=== PATIENT | female | born 1950 | race Caucasian/White ===

== ENCOUNTER 2024-09-28 08:17 | Emergency (ER) | payer OTHER, SELFPAY ==
[2024-09-28 08:29] VITALS: BP 158/82; PULSE 99; RESP 18; TEMP 36.4; O2SAT 94; BMI 31.2
[2024-09-28 08:46] LABS: Appearance Urine Clear (Clear); Bilirubin Urine Negative (Negative); Blood Urine 1+ (Negative); Color Urine Yellow (Yellow); Glucose Urine Negative (Negative); Ketones Urine Negative (Negative); Leukocyte Esterase Urine Negative (Negative); Nitrite Urine Negative (Negative); Protein Urine Negative (Negative); Urobilinogen Urine 0.2 (0.2-1.0)
--- NOTE | 2024-09-28 08:56 | ED_ITS ---
HPI - General Adult General Date Seen: 09/28/24 Chief complaint: Flank Pain Stated complaint: R side pain Time Seen by Provider: 09/28/24 08:24 Source: patient, family and RN notes reviewed Mode of arrival: ambulatory Limitations: language barrier History of Present Illness HPI narrative: Is a 73-year-old woman here with her daughter, who is helping to interpret, for evaluation of left-sided flank and abdominal pain which started earlier today. She says it was terrible earlier although it is feeling a bit better. When it was at its worst she had associated nausea and vomiting. She is no longer feeling nauseated now. She denies any urinary symptoms aside from having to get up multiple times at night to pee over the past few months. She does take hydrochlorothiazide but says she takes that morning. She does not have any dysuria or hematuria. She has not had any diarrhea, black or bloody stools, constipation. No history of kidney stones or diverticulitis. Medical history and medications reviewed. She does not smoke. Related Data Home Medications ?Medication ?Instructions ?Recorded ?Confirmed acetaminophen 500 mg tablet 1,000 mg PO 3XD PRN pain 09/28/24 09/28/24 famotidine 20 mg tablet 20 mg PO DAILY 09/28/24 09/28/24 hydrochlorothiazide 25 mg tablet 25 mg PO QAM 09/28/24 09/28/24 losartan 100 mg tablet 100 mg PO DAILY 09/28/24 09/28/24 Allergies Allergy/AdvReac Type Severity Reaction Status Date / Time No Known Drug Allergies Allergy Verified 09/28/24 08:27 Review of Systems Status of ROS: Reports: 10 or more systems reviewed and unremarkable except as noted in History and below Exam Narrative: Exam Narrative: Vital signs as noted above. In general, an alert, well-appearing patient. Head: Normocephalic, atraumatic. Eyes: Pupils are equal reactive. Extraocular movements are full. Conjunctivae are normal. ENT: Mucous membranes are moist. Neck: Supple without lymphadenopathy. Heart: Regular rate and rhythm. No murmur or rub. Lungs: Clear bilaterally. No increased work of breathing, crackles or wheezes. Abdomen: Soft and nontender. No organomegaly. Extremities: Well perfused. No edema. No calf tenderness. Pulses intact. Neurologic: Patient is alert and oriented to person and place. Speech is fluent. Face is symmetric. Moves all extremities equally. Affect: Normal. Skin: Warm and dry. Well perfused. Const: Vital Signs, click to edit/add: Vital Signs - 24 hr 09/28/24 08:29 Temperature 97.6 F Pulse Rate [Pulse Oximeter] 99 Respiratory Rate 18 Blood Pressure [Ri ght Upper Arm] 158/82 H Pulse Oximetry 94 Oxygen Delivery Me thod Room Air Documenting provider has reviewed patient's vital signs: yes Course Course ED Course: Urinalysis obtained. Right now she declines need for anything for pain or nausea. CT scan of the abdomen ordered to evaluate for kidney stone. Other diagnostic considerations would include small-bowel obstruction, diverticulitis, colitis, less likely pancreatitis, cholecystitis, appendicitis given the location of her pain, rule out urinary tract infection or pyelonephritis. Urinalysis does show 1+ blood, micro is pending at this time. CBC shows a normal white blood cell count of 7, minimal left shift with 78% neutrophils. Metabolic panel is notable for sodium of 129 and a potassium of 3.3, I do not have previous numbers to compare this to but she is on hydrochlorothiazide which may be contributing. I do not think this directly relates to her abdominal sy mptoms. BUN creatinine are normal, blood sugar 175. CRP is less than 0.5. Urine micro shows 2-5 red cells, 0-[address] scan by my review did not show evidence of kidney stones or hydronephrosis, pyelonephritis, diverticulitis or other inflammatory changes. Final radiology read was reviewed, no findings to explain her left-sided abdominal pain but she was noted to have a lesion on the right ovary difficult to characterize and a follow-up ultrasound was recommended. I have discussed all this with the patient and her daughter. No clear explanation for her back and abdominal pain at this time, would recommend treating with ibuprofen and/or Tylenol if needed. Discussed that the ovarian cyst needs to be followed up with an ultrasound, her daughter says that they can do that through [facility]. Provided a copy of the CT report. Return at any time for severe uncontrolled pain, new symptoms such as vomiting, fever, bloody stools etcetera. Vital Signs Vital signs: Initial Vital Signs Temperature 97.6 F 09/28/24 08:29 Temperature Source Temporal Artery Scan 09/28/24 08:29 Pulse Rate 99 09/28/24 08:29 Pulse Rhythm Regular 09/28/24 08:29 Respiratory Rate 18 09/28/24 08:29 Blood Pressure 158/82 H 09/28/24 08:29 Blood Pressure Mean 107 H 09/28/24 08:29 Blood Pressure Position Sitting 09/28/24 08:29 Pulse Oximetry 94 09/28/24 08:29 Oxygen Delivery Method Room Air 09/28/24 08:29 Vital Signs Temperature 97.6 F 09/28/24 08:29 Pulse Rate 99 09/28/24 08:29 Respiratory Rate 18 09/28/24 08:29 Blood Pressure 158/82 H 09/28/24 08:29 Pulse Oximetry 94 09/28/24 08:29 Oxygen Delivery Method Room Air 09/28/24 08:29 Temperature 97.6 F 09/28/24 08:29 Pulse Rate 99 09/28/24 08:29 Respiratory Rate 18 09/28/24 08:29 Blood Pressure 158/82 H 09/28/24 08:29 Pulse Oximetry 94 09/28/24 08:29 Oxygen Delivery Method Room Air 09/28/24 08:29 Medical Decision Making Lab Data Labs: Lab Results 09/28/24 09/28/24 Range/Units 08:30 09:12 WBC 6.93 (4.50-11.00) K/uL RBC 3.92 L (4.00-5.20) m/uL Hgb 12.3 (12.0-16.0) gm/dL Hct 35.6 (33.0-51.0) % MCV 91 (80-100) fL MCH 31 (26-34) pg MCHC 35 (32-36) gm/dL RDW Coeff of Armando 11.7 (11.5-15.5) % Plt Count 283 (140-440) K/uL Neut % (Auto) 77.6 H (42.0-72.0) % Lymph % (Auto) 13.9 L (20-44) % [place] % (Auto) 6.2 (0.0-11.0) % Eos % (Auto) 1.2 (0.0-7.0) % Baso % (Auto) 0.4 (0.0-3.0) % Neut # (Auto) 5.40 (1.7-7.0) K/uL Lymph # (Auto) 1.00 (0.90-2.90) K/uL [place] # (Auto) 0.40 (0.00-0.90) K/UL Eos # (Auto) 0.08 (0.00-0.50) K/uL Baso # (Auto) 0.03 (0.00-0.30) K/uL Abs Immat Gran (auto) 0.05 (0.00-0.30) K/uL Imm/Tot Granulo (auto) 0.7 % Sodium 129 L (135-149) mmol/L Potassium 3.3 L (3.6-5.1) mmol/L Chloride 96 (96-114) mmol/L Carbon Dioxide 24 (20-32) mmol/L Anion Gap 9 (7-15) mEq/L BUN 19 (7-30) mg/dL Creatinine 0.6 (0.5-1.5) mg/dL Estimated Creat Clear 37.06 Estimated GFR 96 ml/min Glucose 175 H (60-115) mg/dL Calcium 8.8 (8.4-10.6) mg/dL C-Reactive Protein < 0.5 L (0.5-1.0) mg/dL Urine Color Yellow (Yellow) Urine Appearance Clear (Clear) Urine pH 7.0 (5.0-8.5) Ur Specific [place] 1.020 (1.000-1.030) Urine Protein Negative (Negative) Urine Glucose (UA) Negative (Negative) Urine Ketones Negative (Negative) Urine Blood 1+ A (Negative) Urine Nitrite Negative (Negative) Urine Bilirubin Negative (Negative) Urine Urobilinogen 0.2 (0.2-1.0) Ur Leukocyte Esterase Negative (Negative) Urine RBC 2-5 A (0-2) Urine WBC 0-2 (0-5) Ur Squamous Epith Cells Few (None-Few) Urine Bacteria None (None) Imaging Data CT scan - abdomen: Attestation: I have reviewed the pertinent imaging results. Radiologist's impression: Patient: AZIZA VERGARA Facility: [facility] Site . Site : 1950 Study: CT-Abdomen/Pelvis w/o-09/28/2024 9:15:07 AM Ordering Physician: Marlo Ramirez Final Report: INDICATION: Left flank pain COMPARISON: None TECHNIQUE: CT examination of the abdomen and pelvis was performed without intravenous contrast. Thin section axial images were obtained from the lung bases through the pubic symphysis. Oral contrast was not administered. Please note that all CT scans at this facility use dose modulation, iterative re construction, and/or weight-based dosing when appropriate to reduce radiation dose to as low as reasonably achievable. FINDINGS: LUNG BASES: Minimal atelectasis at the lung bases.The heart size is normal at the lung bases. LIVER/BILIARY SYSTEM:Normal-sized liver. Low-density lesions likely cysts. No intrahepatic biliary ductal dilation. The gallbladder appears normal. ADRENALS: Normal non-contrast appearance KIDNEYS, URETERS and BLADDER:The kidneys appear normal given lack of intravenous contrast. No visible mass, calculus or hydronephrosis. The ureters and bladder as visualized appear normal. SPLEEN:Normal non-contrast appearance. PANCREAS: Normal non-contrast appearance. RETROPERITONEUM and MESENTERY: There is no mass, adenopathy or aortic aneurysm. Atherosclerotic vascular calcifications GASTROINTESTINAL SYSTEM: There is no evidence of diverticulitis, colitis, mechanical obstruction, or appendicitis. The small bowel as visualized appears normal.Diverticulosis. PELVIS: Right ovarian lesion measuring 2.4 centimeters. This appears low-density but can not be fully characterized on this study. Follow-up ultrasound for further characterization is recommended at a clinically appropriate time.. OSSEOUS STRUCTURES and ABDOMINAL WALL: There is an age-appropriate appearance of the osseous structures.Degenerative changes and scoliosis. No significant abdominal wall abnormality. OTHER: No free fluid or free air. IMPRESSION: 1. No calcified calculus. No obstructive uropathy. 2. Diverticulosis but no evidence of diverticulitis, colitis or obstruction. No visible GI cause for left flank pain. 3. Right ovarian lesion measuring 2.4 centimeters. This appears low-density but can not be fully characterized on this study. Follow-up ultrasound for further characterization is recommended at a clinically appropriate time. 4. Other nonacute appearing findings as above Please note that all CT scans at this facility use dose modulation, iterative reconstruction, and/or weight-based dosing when appropriate to reduce radiation dose to as low as reasonably achievable. Dictated by Jameson Radford MD @ 09/28/2024 9:21:33 AM Discharge Plan Discharge Clinical Impression: Left lateral abdominal pain, Ovarian cyst, right Instructions: Abdominal Pain (ED) Additional Instructions: Your test today are largely normal, there is no clear explanation for your pain on your CT scan, such as a kidney stone. There is no evidence of urinary tract infection. Your sodium and potassium are slightly low today, which may be related to the hydrochlorothiazide you take. On your CT scan, you do have a probable cyst on your right ovary, but this needs to be evaluated further with an ultrasound. Please follow this up with your primary care doctor or with Gynecology, if you would like to see 1 of our gynecologists. For severe uncontrolled pain, new symptoms such as fever, vomiting, bloody stools, or other worsening, return to the ER at any time. Prescriptions: No Action acetaminophen 500 mg tablet 1,000 mg PO 3XD PRN (Reason: pain) famotidine 20 mg tablet 20 mg PO DAILY hydrochlorothiazide 25 mg tablet 25 mg PO QAM losartan 100 mg tablet 100 mg PO DAILY Follow Up/Referrals: Provider,Not a Local [Primary Care Provider] - Stand Alone Forms: [employer] Info Instructions
--- OUTSIDE RECORDS SUMMARY | 2024-09-28 09:13 | XMS_ITS | Clinical Summary ---
Author Organization [facility] Address [place], [place] [address] Care Team Providers Care Travel Freight And Passenger Agent Name Role Phone Melva Armendariz RN, BACTERIOLOGIST FISHERY Primary Care Provide r Allergies No known active allergies Medications Medication Sig Dispensed Refills Start Date End Date Status atorvastatin (LIPITOR) 20 mg tabletIndications:Hyper lipidemia, unspecified hyperlipidemia type Take 1 tablet by mouth at bedtime. 90 tablet 3 02/26/2018 Active hydroCHLOROthiazide (HCTZ) 25 mg tabletIndications:HTN (hypertension) TAKE ONE TABLET BY MOUTH EVERY DAY 30 tablet 03/08/2019 Active Active Problems Problem Noted Date Diagnosed Date GERD (gastroesophageal reflux disease) 5 HTN (hypertension) 03/18/2015 Encounters Date Type Department Care Team Description 08/25/2024 Lab Requisition [facility] [address] [facility] [place] [address] Stacia Mock MD 08/14/2024 Lab Requisition [facility] [phone] Stacia Mock MD from Last 3 Months Immunizations Name Administration Dates Next Due COVID-19 vaccine (CASTT 30mcg/0.3mL) GUALBERTO Cruz 02/20/2021,01/30/2021 Influenza A (H1N1), Inactivated 11/11/2009 Influenza, IIV3 (Age 6-35 mos) 12/10/2012 Influenza, IIV3 (Age >=3 years) 11/30/2010 Influenza, IIV4 08/05/2015,09/15/2014 Pneumococcal conj 13-Valent (Prevnar 13) 018 Td (Age >=7 Years) 12/13/2005 Tdap 12/31/2015 Family History Medical History Relation Name Comments Diabetes Mother secondary to complications, age 58 Diabetes Sister two, s econdary to diabetes Relation Name Status Comments Father Mother Sister Social History Tobacco Use Types Packs/Day Years Used Date Smoking Tobacco: Never Smokeless Tobacco: Never Tobacco Cessation:Counseling Given: Yes Alcohol Use Standard Drinks/Week Comments Yes 0 (1 standard drink = 0.6 oz pur e alcohol) 1-2 beers/week PHQ-2 Answer Date Recorded PHQ-2 Score 0 01/26/2019 Sex and Gender Information Value Date Recorded Sex Assigned at Not on file Gender Identity Not on file Sexual Orientation Not on file Obstetrics History Para Term AB IAB SAB Ectopic Multiple Livin g Live Births 6 6 6 Date Outcome GA Total Labor Labor/2nd/3rd Weight Sex Type Anes PTL Dina A1 A5 Name Clin Para Para Para Para Para Para Last Filed Vital Signs Vital Sign Reading Time Taken Comments Blood Pressure 133/60 01/09/2024 4:29 AM DANCE HISTORIAN Pulse 69 01/09/2024 4:29 AM DANCE HISTORIAN Temperature 36.7 ??C (98 ??F) 01/09/2024 3:11 AM DANCE HISTORIAN Respiratory Rate 16 01/09/2024 4:29 AM DANCE HISTORIAN Oxygen Saturation 94% 01/09/2024 4:29 AM DANCE HISTORIAN Inhaled Oxygen Concentration - - Weight 80.3 kg (177 lb) 01/09/2024 3:11 AM DANCE HISTORIAN Height 147.3 cm (4' 10) 01/09/2024 3:11 AM DANCE HISTORIAN Body Mass Index 36.99 01/09/2024 3:11 AM DANCE HISTORIAN Plan of Treatment Health Maintenance Due Date Last Done Comments Hepatitis C screening for ag e 18-79 1970 Zoster (shingles) series for age 50+ (1 of 2) 2002 DEXA/DXA scan for age 65+ 2017 01/11/2016 BMI (ht and wt on same day) for age 18+ 02/22/2019 02/22/2018, 12/25/2017, 03/01/2017, Additional history exists Depression screening for age 12+ 02/22/2019 02/22/2018, 01/31/2017, 12/31/2015, Additional history exists Mammogram for age 45-75 02/22/2019 02/23/20 18, 12/31/2015, 09/15/2014, Additional history exists Pneumococcal series for age 65+ (2 of 2 - PPSV23 or PCV20) 02/22/2019 02/22/2018 COVID-19 vaccine series ( season) 2024 11/02/2021, 11/02/2021, 02/20/2021, Additional history exists Influenza for age 65+ 07/27/2024 08/05/2015 , 09/15/2014, 11/30/2010, Additional history exists Fecal testing non-DNA (FIT,FOBT,iFOBT) for age 45-75 08/22/2025 08/22/2024, 09/27/2022, 02/11/2016 Tetanus booster 12/31/2025 12/31/2015, 12/13/2005 Lipids for age 45-75 08/13/2029 08/13/2024, 09/26/2023, 05/24/2023, Additional history exists Tdap Completed 12/31/2015 Procedures Procedure Name Priority Date/Time Associated Diagnosis Comments OCCULT BLOOD IFOBT STOOL Routine 08/22/2024 6:30 AM CDT Encounter for screening for malignant neoplasm of colon EXTRA TUBE LAVENDER Routine 08/13/2024 2 :45 PM CDT CBC WITH AUTO DIFFERENTIAL Routine 08/13/2024 2:45 PM CDT LIPID PANEL Routine 08/13/2024 2:45 PM CDT HEMOGLOBIN A1C Routine 08/13/2024 2:45 PM CDT COMP METABOLIC PANEL Routine 08/13/2024 2:45 PM CDT CBC WITH AUTO DIFFERENTIAL Routine 08/13/2024 2:45 PM CDT XR MAMMO BILAT SCREENING Routine 02/22/2018 4:32 PM CDT Visit for screening mammogram XR DXA BONE DENSITY SITES AXIAL Routine 01/11/2016 4:26 PM DANCE HISTORIAN Screening for osteoporosis from Last 3 Months or Most Recently Relevant to Health Maintenance Results * OCCULT BLOOD IFOBT STOOL (08/22/2024 6:30 AM CDT) Pathologist [facility] STOOL BLOOD ,IFOBT Negative Negative 08/25/2024 5:18 PM CDT [facility] Stool STOOL SPECIMEN / Unknown Client Collect / Unknown 08/22/2024 6:30 AM CDT 08/25/2024 5:08 PM CDT Stacia Mock MD LABORATORY [facility] [address] [place] [address] * (ABNORMAL) CBC WITH AUTO DIFFERENTIAL (08/13/2024 2:45 PM CDT) [facility] WHITE BLOOD COUNT 7.2 4.5 - 11.0 thou/cu mm 08/14/2024 1:25 PM CDT [facility] RED BLOOD COUNT 3.57(L) 4.00 - 5.20 mil/cu mm 08/14/2024 1:25 PM CDT [facility] HEMOGLOBIN 11.5(L) 12.0 - 16.0 g/dL 08/14/2024 1:25 PM CDT [facility] HEMATOCRIT 32.9(L) 33.0 - 51.0 % 08/14/2024 1:25 PM CDT [facility] MCV 92 80 - 100 fL 08/14/2024 1:25 PM CDT [facility] MCH 32.2 26.0 - 34.0 pg 08/14/2024 1:25 PM CDT [facility] MCHC 35.0 32.0 - 36.0 g/dL 08/14/2024 1:25 PM CDT [facility] RDW 12.4 11.5 - 15.5 % 08/14/2024 1:25 PM CDT [facility] PLATELET COUNT 274 140 - 440 thou/cu mm 08/14/2024 1:25 PM CDT [facility] MPV 10.0 6.5 - 11.0 fL 08/14/2024 1:25 PM CDT [facility] NRBC 0.0 % 08/14/2024 1:25 PM CDT [facility] ABS NRBC 0.0 thou /cu mm 08/14/2024 1:25 PM CDT [facility] % NEUT 48.6 % 08/14/2024 1:25 PM CDT [facility] % LYMPH 29.3 % 08/14/2024 1:25 PM CDT [facility] % MONO 16.8 % 08/14/2024 1:25 PM CDT [facility] % EOS 3.5 % 08/14/2024 1:25 PM CDT [facility] % BASO 0.7 % 08/14/2024 1:25 PM CDT [facility] % IMMATURE GRAN (METAS,MYELOS,TN OS) 1.1 % 08/14/2024 1:25 PM CDT [facility] ABSOLUTE NEUTROPHILS 3.5 1.7 - 7.0 thou/cu mm 08/14/2024 1:25 PM CDT [facility] ABSOLUTE LYMPHOCYTES 2.1 0.9 - 2.9 thou/cu mm 08/14/2024 1:25 PM CDT [facility] ABSOLUTE MONOCYTES 1.2(H) <0.9 thou/cu mm 08/14/2024 1:25 PM CDT [facility] ABSOLUTE EOSINOPHILS 0.3 <0.5 thou/cu mm 08/14/2024 1:25 PM CDT [facility] ABSOLUTE BASOPHILS 0.1 <0.3 thou/cu mm 08/14/2024 1:25 PM CDT [facility] ABSOLUTE IMMATURE GRANULOCYTES(MET ,MYELOS,PROS) 0.1 <0.3 thou/cu mm 08/14/2024 1:25 PM CDT [facility] Blood BLOOD SPECIMEN / Unknown Client Collect / Unknown 08/13/2024 2:45 PM CDT 08/14/2024 12:52 PM CDT Stacia Mock MD HEMATOLOGY Performing Organization Address City/[facility]/ZIP Co de Phone Number [facility] [address] [place] [address], * HEMOGLOBIN A1C SCREENING (08/13/2024 2:45 PM CDT) HEMOGLOBIN A1C SCREENING 6.0 <=6.4 % 08/14/2024 3:11 PM CDT [facility] Blood BLOOD SPECIMEN / Unknown Client Collect / Unknown 08/13/2024 2:45 PM CDT 08/14/2024 12:52 PM CDT Narrative [facility] - 08/14/2024 3:11 PM CDT ? (<5.7%) ?Normal ? (5.7% to 6.4%) ? Indicates prediabetes ? (>=6.5%) ? Confirms diabetes Falsely low levels may be seen with: Recent Transfusion, Recent Significant Blood Loss, Hemolytic Diseases, or Falsely elevated levels may be seen with: Untreated Anemias, Splenectomy Stacia Mock MD CHEMISTRY Performing Organization Address City/[facility] Co de Phone Number [facility] [address] [place] [address], * EXTRA TUBE LAVENDER (08/13/2024 2:45 PM CDT) Blood BLOOD SPECIMEN / Unknown Client Collect / Unknown 08/13/2024 2:45 PM CDT 08/14/2024 12:52 PM CDT Stacia Mock MD LABORATORY [facility] [address] [address], [place] * (ABNORMAL) LIPID PANEL (08/13/2024 2:45 PM CDT) CHOLESTEROL,TOTAL 194 100 - 199 mg/dL 08/14/2024 1:24 PM CDT [facility] Comment: Cholesterol, Total Reference Ranges Desirable <200 mg/dL Borderline 200-239 mg/dL High >=240 mg/dL TRIGLYCERIDES 184(H) <150 mg/dL 08/14/2024 1:24 PM CDT [facility] HDL CHOLESTEROL 60 >40 mg/dL 1:24 PM CDT [facility] NON-HDL CHOLESTEROL 134 <145 mg/dl 08/14/2024 1:24 PM CDT [facility] CHOL/HDL RATIO 3.23 <4.50 08/14/2024 1:24 PM CDT [facility] LDL CHOLESTEROL 97 <=130 mg/dL 08/14/2024 1:24 PM CDT [facility] VLDL CHOLESTEROL 37(H) <=30 mg/dL 08/14/2024 1:24 PM CDT [facility] Blood BLOOD SPECIMEN / Unknown Client Collect / Unknown 08/13/2024 2:45 PM CDT 08/14/2024 12:52 PM CDT Stacia Mock MD CHEMISTRY [facility] [address] [place] [address], [place] * (ABNORMAL) COMP METABOLIC PANEL (08/13/2024 2:45 PM CDT) SODIUM 131(L) 136 - 145 mmol/L 08/14/2024 1:24 PM CDT [facility] POTASSIUM 4.0 3.5 - 5.1 mmol/L 08/14/2024 1:24 PM CDT [facility] CHLORIDE 96(L) 98 - 107 mmol/L 08/14/2024 1:24 PM [facility] CO2,TOTAL 24 22 - 29 mmol/L 08/14/2024 1:24 PM [facility] ANION GAP 11 5 - 18 08/14/2024 1:24 PM T [facility] GLUCOSE 97 70 - 99 mg/dL 08/14/2024 1:24 PM [facility] CALCIUM 8.7(L) 8.8 - 10.2 mg/dL 08/14/2024 1:24 PM [facility] BUN 19 8 - 23 mg/dL 08/14/2024 1:24 PM [facility] CREATININE 0.84 0.50 - 0.90 mg/dL 08/14/2024 1:24 PM [facility] BUN/CREAT RATIO 23(H) 10 - 20 1:24 PM [facility] eGFR 74(L) >90 mL/min/1.7 3m2 08/14/2024 1:24 PM [facility] Comment:As of 2022, eG FR is calculated by the CKD-EPI creatinine equation without race adjustment. ??eGFR can be influenced by muscle mass, exercise, and diet. ??The reported eGFR is an estimation only and is only applicable if the renal function is stable. ALBUMIN 3.8(L) 4.0 - 4.9 g/dL 08/14/2024 1:24 PM T [facility] PROTEIN,TOTAL 6.4 6.0 - 8.0 g/dL 08/14/2024 1:24 PM [facility] BILIRUBIN,TOTAL 0.2 0.0 - 1.2 mg/dL 08/14/2024 1:24 PM [facility] ALK PHOSPHATASE 64 35 - 104 IU/L 08/14/2024 1:24 PM [facility] ALT (SGPT) 42(H) 10 - 35 IU/L 08/14/2024 1:24 PM CDT [facility] AST (SGOT) 32 10 - 35 IU/L 08/14/2024 1:24 PM CDT [facility] Blood BLOOD SPECIMEN / Unknown Client Collect / Unknown 08/13/2024 2:45 PM CDT 08/14/2024 12:52 PM CDT Stacia Mock MD CHEMISTRY [facility] [address] [place] [address], * XR MAMMO BILAT SCREENING (02/22/2018 4:32 PM CDT) Anatomical Region Laterality Modality BREASTS, Breast Left, Breast Right Bilateral Mammography Impressions 02/25/2018 12:32 PM CDT ??There is no radiographic evidence for malignancy. ??Recommend annual mammograms. A lay language report of this examination will be provided to the patient. MAMMOGRAM ASSESSMENT: ??ACR 1 Negative Narrative 02/25/2018 12:32 PM CDT XR MAMMO BILAT SCREENING [[id number]] CLINICAL HISTORY: ??This is an asymptomatic 67 y.o. patient. INDICATION FOR EXAM: Mammogram Screening. TECHNIQUE: CC & MLO views were obtained. ??This digital study was evaluated with the assistance of Computer-Aided Detection. COMPARISON FILM: Yes 12/31/15 [facility] 09/15/14 [facility] FINDINGS: ??Mammographically, the breast tissue has scattered fibroglandular densities. ??There are no dominant masses, suspicious micro calcifications or areas of architectural distortion. Chronic bilateral nipple inversion. Sri Jj INVENTORY ADMINISTRATOR MAMMO * XR DXA BONE DENSITY 2 SITES AXIAL (01/11/2016 4:26 PM DANCE HISTORIAN) Anatomical Region Laterality Modality Spine, HIPS, HIPL, HIPR Other Narrative 01/12/2016 9:37 PM DANCE HISTORIAN Please see scanned document for results of this study. Sri Jj NP DEXA from Last 3 Months or Most Recently Relevant to Health Maintenance Care Teams Travel Freight And Passenger Agent Relationship Specialty Start Date End Date Melva Armendariz, RN, BACTERIOLOGIST FISHERY [address] [place] [id number] PCP - General Nurse Practitioner 05/19/21
--- OUTSIDE RECORDS SUMMARY | 2024-09-28 09:13 | XMS_ITS | Data Portability ---
Author Organization [facility] Address [address] [place] [address] [place] [phone] Assessment Encounter Date Assessment Date Assessment LastModified by Organization Details LastModified Time 10/04/2023 10/04/2023 - postnasal drip possibly related to seasonal changes vs GERD/gastritis - trial of Flonase - discussed diet changes for biliary colic/GERD - RUQ ultrasound, plan pending results - STEVO hosasaf for RLE varicosities - refilled BP medications, would like to stay off of statin for now - recheck 6 months, sooner prn ghada Not available 10/04/2023 12:28:49 Plan of Treatment Reminders Order Date Submit Date Provider Last Modified By Organization Details Last Modified Time Details Appointments Any 30 2023 09:30A Roe BLANCO MD Not available Not available Not available Lab CMP, serum or plasma 2022 023 [facility], [address] [place] [address], [phone], 05/24/2023 17:13:48 lipid panel, serum 2022 023 [facility], [address] [place] [address], [phone], 05/28/2023 10:49:23 glycohe moglobi n, total, blood 2022 023 [facility], [address] [place] [address], [phone], 05/28/2023 10:49:23 CMP, serum or plasma 2022 023 [facility], [address] [place] [address], [phone], 05/25/2023 12:28:33 amylase + lipase, serum 2022 023 [facility], [address] [place] [address], [address], 05/25/2023 12:28:33 H pylori Ag, stool 2023 024 [facility], [address] [place] [address], [phone], 06/26/2024 17:18:12 CMP, serum or plasma 2023 024 [facility], [address] [place] [address], [phone], 08/14/2024 15:20:02 CBC w/ auto diff 2023 024 [facility], [address] [place] [address], [phone], 08/14/2024 15:20:01 lipid panel, serum 2023 024 [facility], [address] [place] [address], [phone], 08/14/2024 15:20:01 glycohe moglobi n, total, blood 2023 024 [facility], [address] [place] [address], [phone], 08/14/2024 17:16:33 Referral None recorde d. Procedures None recorde d. Surgeries None recorde d. Imaging XR, abdomen - Right-s ided pain under right rib cage/RU Q, improve d with BM [address], [address] [place], [address], 06/28/2023 10:44:19 US, abdomen , limited 2022 023 [facility], [address] [place] [address] [place], [address], 01/10/2024 13:57:02 Medication Orders Colace 100 mg capsule 2022 023 JOHANNA Not available 10/04/2023 12:51:30 hydroch lorothi azide 25 mg tablet 2022 023 JOHANNA Not available 10/04/2023 12:51:26 losarta n 100 mg tablet 2022 023 JOHANNA Not available 10/04/2023 12:51:45 Flonase Allergy Relief 50 mcg/act uation nasal spray,s uspensi on 2022 023 JOHANNA Not available 10/04/2023 12:51:59 Pepcid 20 mg tablet 2023 024 JOHANNA Not available 03/04/2024 12:45:37 diclofe nac 1 % topical gel 2023 024 JOHANNA Not available 03/04/2024 12:45:26 losarta n 100 mg tablet 2023 024 JOHANNA Not available 07/24/2024 12:50:12 hydroch lorothi azide 25 mg tablet 2023 024 JOHANNA Not available 07/24/2024 12:50:12 famotid ine 20 mg tablet 2023 024 JOHANNA Not available 07/24/2024 12:51:15 propran olol 20 mg tablet 2023 024 JOHANNA Not available 07/24/2024 12:50:11 acetami nophen 500 mg tablet 2023 024 JOHANNA Not available 07/24/2024 12:56:59 Patient TargetsNo targets recorded. Patient Instructions Encounter Date Encounter Id Patient Instructions Last Modified By Organization Details Last Modified Time 07/24/2024 [id number] [employer]: ejercicios - [rotator cuff: exercises] Not available 07/24/2024 13:00:29 continue current meds Trial HEP and tylenol for shoulder pain Schedule labs in near future FU in 3 months Not available 07/24/2024 23:30:15 Reason for Referral None Reported. Results Created Date Observation Date Name Description Value Unit Range Abnormal Flag Note LastModifiedBy Organization Detail LastModifiedTime 12/21/1912/21/2022 CMP, serum or plasm a creatinine 0.78 Not Available Not Ambreen ilable 2022 12:14:18 12/21/19 23 12/21/2022 CMP, serum or plasm a ALT 28 Not Available Not Availa ble 2022 12:14:18 05/24/20 23 05/24/2023 lipid panel , serum creatinine 0.[address] [facility] [address] [place] [address], [phone], 05/28/2023 10:49:23 05/24/2005/24/2023 lipid panel , serum ALT 30 Not Available [facility] [address] [place] [address], [phone], 05/28/2023 10:49:23 05/24/2005/24/2023 lipid panel , serum hemoglobin A1C 6.3 Not Available [facility] [address] [place] [address], [phone], 05/28/2023 10:49:23 05/24/2005/24/2023 lipid panel , serum total cholesterol 112 Not Available [facility] [address] [place] [address], [address], 05/28/2023 10:49:23 05/24/2005/24/2023 lipid panel , serum triglyceride s 80 Not Available [facility] [address] [place] [address], [phone], 05/28/2023 10:49:23 05/24/2005/24/2023 lipid panel , serum HDL 41 Not Available [facility] [address] [place] [address], [phone], 05/28/2023 10:49:23 05/24/2005/24/2023 lipid panel , serum LDL 55 Not Available [facility] [address] [place] [address], [address], 05/28/2023 10:49:23 05/24/2005/24/2023 glyco hemog lobin , total , blood creatinine 0.[address] [facility] [address] [place] [address], [address], 05/28/2023 10:49:23 05/24/2005/24/2023 glyco hemog lobin , total , blood ALT 30 Not Available [facility] [address] [place] [address], [address], 05/28/2023 10:49:23 05/24/2005/24/2023 glyco hemog lobin , total , blood hemoglobin A1C 6.3 Not Available [facility] [address] [place] [address], [phone], 05/28/2023 10:49:23 05/24/2005/24/2023 glyco hemog lobin , total , blood total cholesterol 112 Not Available [facility] [address] [place] [address], [address], 05/28/2023 10:49:23 05/24/2005/24/2023 glyco hemog lobin , total , blood triglyceride s 80 Not Available [facility] [address] [place] [address], [address], 05/28/2023 10:49:23 05/24/2005/24/2023 glyco hemog lobin , total , blood HDL 41 Not Available [facility] [address] [place] [address], [phone], 05/28/2023 10:49:23 05/24/20 23 05/24/2023 glyco hemog lobin , total , blood LDL 55 Not Available [address], [address], 05/28/2023 10:49:23 05/24/20 23 05/24/2023 amyla se + lipas e, serum creatinine 0.76 Not Available [address], [address], 05/25/2023 12:28:33 05/24/20 23 05/24/2023 amyla se + lipas e, serum ALT 30 Not Available [address], [address], 05/25/2023 12:28:33 05/24/20 23 05/24/2023 amyla se + lipas e, serum hemoglobin A1C 6.3 Not Available [facility] [address] [place] [address], [address], 05/25/2023 12:28:33 05/24/20 23 05/24/2023 amyla se + lipas e, serum total cholesterol 112 Not Available [facility] [address] [place] [address], [address], 05/25/2023 12:28:33 05/24/20 23 05/24/2023 amyla se + lipas e, serum triglyceride s 80 Not Available [facility] [address] [place] [address], [address], 05/25/2023 12:28:33 05/24/20 23 05/24/2023 amyla se + lipas e, serum HDL 41 Not Available [address], [address], 05/25/2023 12:28:33 05/24/20 23 05/24/2023 amyla se + lipas e, serum LDL 55 Not Available [address], [address], 05/25/2023 12:28:33 05/24/20 23 05/24/2023 CMP, serum or plasm a creatinine 0.[address] [facility] [address] [place] [address], [address], 05/25/2023 12:18:08 05/24/20 23 05/24/2023 CMP, serum or plasm a ALT 30 Not Available [address], [address], 05/25/2023 12:18:08 05/24/20 23 05/24/2023 CMP, serum or plasm a hemoglobin A1C 6.3 Not Available [facility] [address] [place] [address], [address], 05/25/2023 12:18:08 05/24/20 23 05/24/2023 CMP, serum or plasm a total cholesterol 112 Not Available [address], [address], 05/25/2023 12:18:08 05/24/20 23 05/24/2023 CMP, serum or plasm a triglyceride s 80 Not Available [facility] [address] [place] [address], [address], 05/25/2023 12:18:08 05/24/20 23 05/24/2023 CMP, serum or plasm a HDL 41 Not Available [address], [address], 05/25/2023 12:18:08 05/24/20 23 05/24/2023 CMP, serum or plasm a LDL 55 Not Available [address], [address], 05/25/2023 12:18:08 09/26/20 23 09/26/2023 lipid panel , serum A1C 6.0 Not Available [address] [place], [address], 09/26/2023 14:12:56 09/26/20 23 09/26/2023 lipid panel , serum creatinine 0.63 Not Available [address] [place], [address], 09/26/2023 14:12:56 09/26/20 23 09/26/2023 lipid panel , serum total cholesterol 220 high Not Available [address] [place], [address], 09/26/2023 14:12:56 09/26/20 23 09/26/2023 lipid panel , serum triglyceride s 131 Not Available [address] [place], [address], 09/26/2023 14:12:56 09/26/20 23 09/26/2023 lipid panel , serum HDL 66 Not Available [address] [place], [address], 09/26/2023 14:12:56 09/26/20 23 09/26/2023 lipid panel , serum LDL 128 Not Available [place] [address] [place], [address], 09/26/2023 14:12:56 09/26/20 23 09/26/2023 BMP, serum or plasm a A1C 6.0 Not Available [place] [address] [place], [address], 09/26/2023 14:12:56 09/26/20 23 09/26/2023 BMP, serum or plasm a creatinine 0.63 Not Available [address] [place], [address], 09/26/2023 14:12:56 09/26/20 23 09/26/2023 BMP, serum or plasm a total cholesterol 220 high Not Available [address] [place], [address], 09/26/2023 14:12:56 09/26/20 23 09/26/2023 BMP, serum or plasm a triglyceride s 131 Not Available [place] [address] [place], [address], 09/26/2023 14:12:56 09/26/20 23 09/26/2023 BMP, serum or plasm a HDL 66 Not Available [place] [address] [place], [address], 09/26/2023 14:12:56 09/26/20 23 09/26/2023 BMP, serum or plasm a LDL 128 Not Available [place] [address] [place], [address], 09/26/2023 14:12:56 09/26/20 23 09/26/2023 glyco hemog lobin , total , blood A1C 6.0 Not Available [place] [address] [place], [address], 09/26/2023 14:08:45 09/26/20 23 09/26/2023 glyco hemog lobin , total , blood creatinine 0.63 Not Available [place] [address] [place], [address], 09/26/2023 14:08:45 09/26/20 23 09/26/2023 glyco hemog lobin , total , blood total cholesterol 220 high Not Available [place] [address] [place], [address], 09/26/2023 14:08:45 09/26/20 23 09/26/2023 glyco hemog lobin , total , blood triglyceride s 131 Not Available [place] [address] [place], [address], 09/26/2023 14:08:45 09/26/20 23 09/26/2023 glyco hemog lobin , total , blood HDL 66 Not Available [facility] [address] [place], [address], 09/26/2023 14:08:45 09/26/20 23 09/26/2023 glyco hemog lobin , total , blood LDL 128 Not Available [facility] [address] [place], [address], 09/26/2023 14:08:45 08/13/20 24 08/13/2024 glyco hemog lobin , total , blood hemoglobin A1C 6.0 normal Not Available [facility] [address] [facility], [place], [address], 08/14/2024 17:07:46 08/13/20 24 08/13/2024 CMP, serum or plasm a white blood count 7.2 normal Not Available [facility] [address] [facility] [place], [address], 08/14/2024 15:20:02 08/13/20 24 08/13/2024 CMP, serum or plasm a hemoglobin 11.5 low Not Available [facility] [address] [facility] [place], [address], 08/14/2024 15:20:02 08/13/20 24 08/13/2024 CMP, serum or plasm a platelet count 274 normal Not Available [facility] [address] [facility] [place], [address], 08/14/2024 15:20:02 08/13/20 24 08/13/2024 CMP, serum or plasm a total cholesterol 194 normal Not Available [facility] [address] [place], [address], 08/14/2024 15:20:02 08/13/20 24 08/13/2024 CMP, serum or plasm a triglyceride s 184 high Not Available [facility] [address] [facility] [place], [address], 08/14/2024 15:20:02 08/13/20 24 08/13/2024 CMP, serum or plasm a HDL 60 normal Not Available [facility] [address] [place], [address], 08/14/2024 15:20:02 08/13/20 24 08/13/2024 CMP, serum or plasm a LDL 97 normal Not Available [facility] [address] [place], [address], 08/14/2024 15:20:02 08/13/20 24 08/13/2024 CMP, serum or plasm a creatinine 0.84 normal Not Available [facility] [address] [facility] [place], [address], 08/14/2024 15:20:02 08/13/20 24 08/13/2024 CMP, serum or plasm a ALT 42 high Not Available [facility] [address] [facility] [place], [address], 08/14/2024 15:20:02 08/13/20 24 08/13/2024 lipid panel , serum white blood count 7.2 normal Not Available [facility] [address] [facility] [place], [address], 08/14/2024 15:20:01 08/13/20 24 08/13/2024 lipid panel , serum hemoglobin 11.5 low Not Available [facility] [address] [facility] [place], [address], 08/14/2024 15:20:01 08/13/20 24 08/13/2024 lipid panel , serum platelet count 274 normal Not Available [facility] [address] [facility] [place], [address], 08/14/2024 15:20:01 08/13/20 24 08/13/2024 lipid panel , serum total cholesterol 194 normal Not Available [facility] [address] [place], [address], 08/14/2024 15:20:01 08/13/20 24 08/13/2024 lipid panel , serum triglyceride s 184 high Not Available [facility] [address] [place], [address], 08/14/2024 15:20:01 08/13/20 24 08/13/2024 lipid panel , serum HDL 60 normal Not Available [facility] [address] [place], [address], 08/14/2024 15:20:01 08/13/20 24 08/13/2024 lipid panel , serum LDL 97 normal Not Available [facility] [address] [place], [address], 08/14/2024 15:20:01 08/13/20 24 08/13/2024 lipid panel , serum creatinine 0.84 normal Not Available [facility] [address] [facility] [place], [address], 08/14/2024 15:20:01 08/13/20 24 08/13/2024 lipid panel , serum ALT 42 high Not Available [facility] [address] [place], [address], 08/14/2024 15:20:01 08/13/20 24 08/13/2024 CBC w/ auto diff white blood count 7.2 normal Not Available [facility] [address] [place], [address], 08/14/2024 15:11:49 08/13/20 24 08/13/2024 CBC w/ auto diff hemoglobin 11.5 low Not Available [facility] [address] [place], [address], 08/14/2024 15:11:49 08/13/20 24 08/13/2024 CBC w/ auto diff platelet count 274 normal Not Available [facility] [address] [place], [address], 08/14/2024 15:11:49 08/13/20 24 08/13/2024 CBC w/ auto diff total cholesterol 194 normal Not Available [facility] [address] [facility] [place], [address], 08/14/2024 15:11:49 08/13/20 24 08/13/2024 CBC w/ auto diff triglyceride s 184 high Not Available [facility] [address] [facility] [place], [address], 08/14/2024 15:11:49 08/13/20 24 08/13/2024 CBC w/ auto diff HDL 60 normal Not Available [facility] [address] [facility] [place], [address], 08/14/2024 15:11:49 08/13/20 24 08/13/2024 CBC w/ auto diff LDL 97 normal Not Available [facility] [address] [facility] [place], [address], 08/14/2024 15:11:49 08/13/20 24 08/13/2024 CBC w/ auto diff creatinine 0.84 normal Not Available [facility] [address] [facility] [place], [address], 08/14/2024 15:11:49 08/13/20 24 08/13/2024 CBC w/ auto diff ALT 42 high Not Available [facility] [address] [facility] [place], [address], 08/14/2024 15:11:49 08/22/2008/22/2024 fecal occul t blood , immun oassa y, stool ifobt neg normal Not Available [facility] [address] [facility] [place], [address], 08/25/2024 19:04:15 Result Notes None recorded. Problems Name Problem SNOMED Code Status Onset Date Resolution Date Notes Provider Name and Address Organization Details Recorded Time Dyslipidemia 320604366 Active 2020 Robert Doll MD [address] [place], [address], [facility] 2 14:41:49 Hypertensive disorder 73774427 Active 2019 [place] [address] [place] [address], [address], [facility] 2 14:41:52 Obesity 992867416 Active 2019 Robert Doll MD [address] [place] [address], [address], [facility] 2 14:41:54 Prediabetes 567043163 Active 2023 STACIA BLANCO MD [address] [place] [address], [address], [facility] 4 12:37:23 Screening for malignant neoplasm of colon Active 2023 STACIA BLANCO MD [address] [place] [address], [address], [facility] 4 16:50:59 Problem Notes None recorded. Medical Equipment None Reported. Allergies Allergen ID Allergen Name Allergen Category Reaction Reaction Severity Criticality Documentation Date Start Date Code Code System Note Provider Name and Address Organization Details Recorded Time 1483 amlodipin e medicatio n other mild low 06/06/2022 21993 RxNorm smitha FINNEY, [facility], [address], [facility] 2 10:54:05 Medications Name Sig Start Date Stop Date Status Note LastModified by Organization Details LastModified Time Colace 100 mg capsule Take 1 capsule every day by oral route. 2022 active Not Available Not Available Not Avai lable atorvasta tin 10 mg tablet TAKE 1 TABLET BY MOUTH EVERY EVENING 10/04 completed Not Available Not Available Not Available lisinopri l 20 mg tablet TAKE 1 TABLET EVERY DAY BY ORAL ROUTE. 01/03 completed Not Available Not Available Not Available famotidin e 40 mg tablet TAKE 1 TABLET EVERY DAY BY ORAL ROUTE NEEDED. 01/02 completed Not Available Not Available Not Available amlodipin e 5 mg tablet TAKE ONE TABLET BY MOUTH ONCE DAILY 03/07 completed Not Available Not Available Not Available acetamino phen 500 mg tablet TAKE 2 TABLETS 3 TIMES A DAY BY ORAL ROUTE AT BEDTIME, FOR SHOULDER PAIN NEEDED. active Not Available Not Available No t Available triamcino lone acetonide 0.1 % topical cream APPLY A THIN LAYER TO THE AFFECTED AREA(S) BY TOPICAL ROUTE 2 TIMES PER DAY active Not Available Not Available No t Available famotidin e 20 mg tablet TAKE 1 TABLET EVERY DAY BY ORAL ROUTE. active Not Available Not Available No t Available amlodipin e 10 mg tablet TAKE 1 TABLET EVERY DAY BY ORAL ROUTE. 04/18 completed Not Available Not Available Not Available hydrocort isone 1 % topical cream APPLY A THIN LAYER TO THE AFFECTED AREA(S) BY TOPICAL ROUTE TWICE A DAY 06/06 completed Not Available Not Available Not Available lisinopri l 10 mg tablet TAKE 1 TABLET BY MOUTH DAILY 11/02 completed INcrease to 20 mg Not Available Not Available Not Available omeprazol e 20 mg capsule,d elayed release TAKE ONE TABLET BY MOUTH DAILY 30-60 MINUTES BEFORE BREAKFAS T 04/18 completed Not Available Not Available Not Available diltiazem CD 120 mg capsule,e xtended release 24 hr TAKE 1 CAPSULE EVERY DAY BY ORAL ROUTE. 01/02 completed Holding for now Not Available Not Available Not Available hydrochlo rothiazid e 25 mg tablet TAKE 1 TABLET BY MOUTH EVERY MORNING active Not Available Not Available No t Available Acid [employer] (famotidi ne) 10 mg tablet TAKE 1 TABLET BY MOUTH NO MORE THAN TWO TIMES PER DAY NEEDED FOR STOMACH UPSET. TAKE 1/2 HOUR BEFORE MEALS 11/02 completed Not Available Not Available Not Available propranol ol 20 mg tablet TAKE 1 TABLET TWICE A DAY BY ORAL ROUTE, FOR ANXIETY, HYPERTEN MARY. active Not Available Not Available No t Available hydroxyzi ne HCl 10 mg tablet TAKE 1 TABLET 3 TIMES A DAY BY ORAL ROUTE BEFORE MEALS. 09/19 completed Not Available Not Available Not Available losartan 100 mg tablet TAKE 1 TABLET EVERY DAY BY ORAL ROUTE. active Not Available Not Available No t Available omeprazol e 20 mg tablet,de layed release Take one tablet by mouth daily 30-60 minutes before breakfas t 03/06 completed Not Available Not Available Not Available diclofena c 1 % topical gel APPLY 2 GRAMS TO THE AFFECTED AREA(S) BY TOPICAL ROUTE 4 TIMES PER DAY NEEDED active Not Available Not Available No t Available Flonase Allergy Relief 50 mcg/actua tion nasal spray,e[employer]in [employer] [place] 1 spray every day by intranas al route. 2022 active Not Available Not Available Not Avai lable Vitals Date Recorded Body weight Heart rate Systolic blood pressure Diastolic blood pressure Provider Name and Address Organization Details Last Updated DateTime 01/02/2023 71896.33 g 67 /min 157 mm[Hg] 74 mm[Hg] [facility] [address] [place], [address] , [facility] [employer] 01/02/2023 17:17:34 Date Recorded Body height Body mass index (BMI) Body weight Heart rate Body temperature Systolic blood pressure Diastolic blood pressure Provider Name and Address Organization Details Last Updated DateTime 3 147.32 cm 14.5 kg/m2 70670.0 3 g 67 /min 97.2 [degF] 132 mm[Hg] 68 mm[Hg] ZAHRA HUANG [address] [place], [address], [facility] [employer] [facility] 3 14:47:54 Date Recorded Body height Body mass index (BMI) Body weight Respiratory rate Heart rate Body temperature Oxygen saturation Oxygen saturation in Arterial blood by Pulse oximetry Systolic blood pressure Diastolic blood pressure Provider Name and Address Organization Details Last Updated DateTime 3 147.32 cm 35.4 kg/m2 08508.9 1 g 22 /min 80 /min 97.2 [degF] 98 % 98 % 137 mm[Hg] 67 mm[Hg] Hope Kevin [facility] [employer] [facility] 3 11:58:44 Date Recorded Body height Body mass index (BMI) Body weight Heart rate Heart rate Oxygen saturation Oxygen saturation in Arterial blood by Pulse oximetry Systolic blood pressure Diastolic blood pressure Provider Name and Address Organization Details Last Updated DateTime 4 147.32 cm 36.8 kg/m2 11735.2 6 g 63 /min 63 /min 98 % 98 % 143 mm[Hg] 67 mm[Hg] Yojana Carmona MD [address] [place], [address], [facility] [employer] [facility] 13:28:54 Date Recorded Body height Body mass index (BMI) Body weight Body temperature Oxygen saturation Oxygen saturation in Arterial blood by Pulse oximetry Heart rate Heart rate Systolic blood pressure Diastolic blood pressure Provider Name and Address Organization Details Last Updated DateTime 147.32 cm 38.3 kg/m2 34312.1 2 g 97.8 [degF] 99 % 99 % 83 /min 83 /min 149 mm[Hg] 74 mm[Hg] Matilde Laguerre [facility] [employer] [facility] 4 12:37:19 Date Recorded Systolic blood pressure Diastolic blood pressure Provider Name and Address Organization Details Last Updated DateTime 07/24/2024 130 mm[Hg] 75 mm[Hg] STACIA BLANCO MD [address] [place], [address] 07/24/2024 13:02:50 Social History Question Answer Notes LastModified by Organizat ion Details LastModified Time Tobacco Smoking Status Never Smoker Robert Doll MD [address] [place], [address] [employer] [facility] 08/21/2022 14:41:08 What Is Your Level Of Alcohol Consumption? Occasional Rare Beer Information not available 08/21/2022 Are You Currently Employed? Yes Information not available 08/21/2022 What Type Of Diet Are You Following? DIABETIC Information not available 08/21/2022 Who Is Your Employer? [employer] [place] Information not available 08/21/2022 Have There Been Any Changes To Your Family Or Social Situation? No Information not available 08/21/2022 Do You Feel Safe At Home? Yes Lives With [employer] Information not available 05/11/2022 What Is Your Relationship Status? Information not available 08/21/2022 Do You Feel Stressed (tense, Restless, Nervous, Or Anxious, Or Unable To Sleep At Night)? [id number] Information not available 08/21/2022 Sex: Unknown Functional Status None recorded. Mental Status None recorded. Family History Relationship Description Onset Age of this Age Resolved Age Notes LastModified by Organization Details LastModified Time Mother Diabetes mellitus dania Not available 2021 15:43:11 Notes:father passed of unkno wn cause, several sibs with diabetes Medical History No medical history recorded. Gynecological HistoryNo gynecological history recorded. Obstetrics History GPAL:G 0 P 0 0 0 0 Immunizations Vaccine Type Date Status Provider Name and Address Organization Details Recorded Time COVID-19, mRNA, LNP-S, PF, 30 mcg/0.3 mL dose, royal-sucrose 11/02/2021 completed GAURANG CHAVIS [address] [place] [address], [address], [facility] 11/02/2021 16:55:25 Past Encounters Encounter ID Performer Location Encounter Start Date Encounter Closed Date Diagnosis/Indication Diagnosis SNOMED-CT Code Diagnosis ICD10 Code [id number] Melva Armendariz NP [facility] [address] [place] [address]90[address] 8 05/17/2020 14:34:36 05/17/2020 14:41:27 SARS-CoV-2 567678737 U07.1 [id number] Karuna Reynolds NP [facility] [address] [place] [address]02[address]903 8 08/11/2020 09:55:11 08/11/2020 10:10:16 [id number] Melva Armendariz NP [facility] [address] [place] [id number] 8 08/30/2020 10:53:40 08/30/2020 15:28:47 Hypertensive disorder 02287634 I10 Hypercholesterolemia 136 99181 E78.00 Prediabetes 091514709 R7 3.03 Essential hypertension 86261624 I10 Acid reflux 382984824 K2 1.9 [id number] Melva Armendariz NP [facility] [address] [place] [address]456-520 8 05/18/2021 12:30:55 05/18/2021 15:09:19 Essential hypertension 80161451 I10 Pain of ri ght shoulder joint 4646315481 7226584 M25.511 Acid reflux 856071922 K2 1.9 Dyslipidemia 928932886 E 78.5 [id number] Karuna Reynolds NP [facility] [address] [place], [place] [address] , [place] [address] 11/02/2021 16:02:34 11/02/2021 17:08:16 Essential hypertension 96710053 I10 Acid reflux 129762152 K2 1.[id number] [facility] [address] [place] [address] [facility] [place] [address] 11/02/2021 16:49:54 11/02/2021 17:07:49 Administration of SARS-CoV-2 mRNA vaccine 1520161675 Z23 [id number] [facility] [address] [place] [address] [place] [address] 01/03/2022 13:50:53 01/03/2022 14:41:24 Hypertensive disorder 80078050 I10 Skin lesion 59779830 L98 .9 Lesion of skin of face 3463475841 06 L98.9 [id number] [facility] [address] [place], [place] [address] [address] 03/07/2022 16:50:58 03/07/2022 17:33:29 Essential hypertension 15015370 I10 Gastroesop hageal reflux disease 879942414 K21.9 Hypertensi on screening 101392391 Z13.6 Pruritic rash 38312313 L 28.2 [id number] Stacia Archer MD [facility] [address] [place] [address] 8 04/18/2022 16:32:29 04/18/2022 17:32:06 Essential hypertension 04963047 I10 Edema of l ower extremity 856218524 R60.0 Nocturia 974422258 R35.1 [id number] Robert Doll MD [facility] [address] [place] [address] [facility] [place] [address] 05/11/2022 12:32:45 05/11/2022 12:58:56 Essential hypertension 06787787 I10 Constipation 89966383 K5 9.00 [id number] [facility] [address] [place], [place] [address] [address] 06/06/2022 15:54:20 06/06/2022 16:52:51 Essential hypertension 71659845 I10 Pain of ri ght shoulder joint 0209285291 3536151 M25.511 [id number] Robert Doll MD [facility] [address] [place] [address] 08/21/2022 13:55:25 08/21/2022 14:25:29 Essential hypertension 85202186 I10 Eruption 105664476 R21 Hyperlipidemia 92027387 E78.5 Constipation 86415790 K5 9.00 [id number] [facility] [address] [place] [address] 09/19/2022 16:59:18 09/19/2022 17:48:38 Hypertensive disorder 02865655 I10 [id number] [facility] [address] [place] [address] 8 01/02/2023 16:09:43 01/02/2023 21:47:46 Neck pain 47006387 M54.2 Screening for cardiovascular system disease 240119538 Z13.6 Hypertensive disorder 38 440579 I10 [id number] [facility] [address] [place] [address] 04/17/2023 14:00:38 04/17/2023 15:06:40 Abdominal discomfort 27523341 R10.9 [id number] MD MICHELLE ScottMINNIE Britton OFFICE [address] [place] [address] 7 10/04/2023 11:53:38 10/04/2023 12:25:29 Right upper quadrant pain 323420219 R10.11 Posterior rhinorrhea 758 00835 R09.82 Constipation 33583789 K5 9.00 Essential hypertension 15893237 I10 Hyperlipidemia 16948457 E78.5 Varicose v eins of lower extremity 72901181 I83.891 [id number] MD BETTINA Scott OFFICE [address] [place] [address] 03/04/2024 09:54:05 03/04/2024 10:35:36 Shoulder pain 16123943 M25.519 Gastritis 9375061 K29.70 [id number] MD [facility] [address] [facility] [place] [address] 07/24/2024 12:30:14 07/24/2024 13:10:33 Hypertensive disorder 47407425 I10 Dyslipidemia 184984296 E 78.5 Anxiety 06879591 F41.9 Gastritis 1948450 K29.70 Shoulder pain 60617561 M 25.519 Prediabetes 445574891 R7 3.03 Health Concerns Section Related Observation LastModified by Organization Detai ls LastModified Time None Recorded Concern Status LastModified by Organization Details LastModified Time None Recorded Advance Directives Directive None Recorded Payers Encounter Date Sequence Insurance Name Policy Number Policy Mattson Covered Member ID Mattson Member ID Guarantor Name 01/02/2023 SLIDING FEE SCHEDULE - DISCOUNT Judy Dector Avery 04/17/2023 SLIDING FEE SCHEDULE - DISCOUNT Judy Dector Avery 10/04/2023 SLIDING FEE SCHEDULE - DISCOUNT Judy Dector Avery 03/04/2024 SLIDING FEE SCHEDULE - DISCOUNT Judy Dector Avery 07/24/2024 SLIDING FEE SCHEDULE - DISCOUNT Judy Dector Avery Notes Date Note Type Note Provider Name and Address Organization Details Recorded Time 01/02/2023 text/html HPI Notes: Pt presents, accompanied with daughter. Arlene interpreting. Main concern today is neck pain. She uses cream and OTC NSAIDS. Uses 2 pillows. No numbness or tingling in arms/fingers other than right with waking up. Has issues more so at night and when working. KELLY HUANG [address] [place], [address], [facility] [employer] 01/03/2023 09:25:01 04/17/2023 text/html HPI Notes: Pt presents with GT interpreting for pain under right rib x15 days. Belching after eating. Eating makes it worse. Type of food makes no differences. Some improvement after BM. No current diarrhea or constipation; several days ago had constipation. Denies pain, but states it is not comfortable. Improves with tylenol usage. Has not had this before. KELLY HUANG [address] [place], [address], [facility] [employer] 04/17/2023 15:00:47 10/04/2023 text/html HPI Notes: Imani suresh presents with her daughter today for primary care f/u. Had labs recently: A1C 6.0, renal function wnl, lipids acceptable. She continues to have RUQ pain, worse after eating (notes that heavier meals provoke more symptoms). Still has gallbladder (and appendix). Also notes varicose veins (BLE, R>L). No history of blood clots. Occasional cough when laying down at night (?post nasal drip vs gastritis symptom). No concerning CP or dyspnea. Yojana Carmona MD [address] [place], [address], [facility] [employer] 10/04/2023 14:00:34 03/04/2024 text/html HPI Notes: Imani suresh is in for f/u, accompanied by her grandson. Concerns today: 1. Abdomen - still has intermittent RUQ pain, sometimes worse after eating - RUQ ultrasound recently normal, no current diarrhea or constipation - has relief with prn Tums 2. Phlegm - still has nighttime phlegm production, never bloody - no significant sore throat, no relief from Flonase. Mild improvement with [place] cough drops 3. Achiness - her bones ache, primarily shoulders - has used a cream that's been intermittently helpful - on a B Complex Vitamin, gets relief with prn APAP or Naproxen 4. BP - not checking BP at home, because she gets anxious and then it's high - went to ER in December for elevated BP - taking her Propranolol, HCTZ, and Losartan as directed - no CP, no headache Yojana Carmona MD [address] [place], [address], [facility] [employer] 03/04/2024 13:29:52 07/24/2024 text/html HPI Notes: Imani suresh is in for f/u of multiple medical problems and refills of medications Hypertension: Does not regularly check BP - initial reading high today but she reports she feels a little nervous and is out of her propranolol - no CP, no headache Anxiety GERD: take famotadine which helps - uses just once daily Arthritis - had used diclofenac - did not help much Had R shoulder pain which has not been too bad, now having some L arm/shoulder pain zachary at bedtime.. Will take ibuprofen STACIA BLANCO MD [address] [place], [address], [facility] - [facility] 07/24/2024 23:30:31 OBGyn Episode No OBEpisode recorded.
--- OUTSIDE RECORDS SUMMARY | 2024-09-28 09:14 | XMS_ITS | Continuity of Care Document ---
Author Organization [place] - [facility] Address [address] [place] [address] [place]O [place]ROY [address] Assessment No assessment recorded. Plan of Treatment Reminders Order Date Submit Date Provider Last Modified By Organization Details Last Modified Time Details Appointments Any 30 2023 09:30A Roe BLANCO MD Not available Not available Not available Lab CMP, serum or plasma 2023 024 [facility] Office, [address] [place] [address] [place], [address], 08/14/2024 15:20:02 CBC w/ auto diff 2023 024 [facility] Office, [address] [place] [address] [place], [address], 08/14/2024 15:20:01 lipid panel, serum 2023 024 [facility] Office, [address] [place], [place] [address], [address], 08/14/2024 15:20:01 glycohemo globin, total, blood 2023 024 [facility] Office, [address] [place], [place] [address], [address], 08/14/2024 17:16:33 Referral None recorded. Procedures None recorded. Surgeries None recorded. Imaging None recorded. Medication Orders losartan 100 mg tablet 2023 024 JOHANNA Not available 07/24/2024 12:50:12 hydrochlo rothiazid e 25 mg tablet 2023 JOHANNA Not available 07/24/2024 12:50:12 famotidin e 20 mg tablet 2023 JOHANNA Not available 07/24/2024 12:51:15 propranol ol 20 mg tablet 2023 JOHANNA Not available 07/24/2024 12:50:11 acetamino phen 500 mg tablet 2023 JOHANNA Not available 07/24/2024 12:56:59 Patient TargetsNo targets recorded. Patient Instructions Encounter Date Encounter Id Patient Instructions Last Modified By Organization Details Last Modified Time 07/24/2024 [id number] manguito de los rotadores: ejercicios - [rotator cuff: exercises] Not available 07/24/2024 13:00:29 continue current meds Trial HEP and tylenol for shoulder pain Schedule labs in near future FU in 3 months Not available 07/24/2024 23:30:15 Reason for Referral None Reported. Problems Name Problem SNOMED Code Status Onset Date Resolution Date Notes Provider Name and Address Organization Details Recorded Time Dyslipidemia 558025040 Active 2020 Robert Doll MD [address] [place], [address], [facility] [employer] 2 14:41:49 Hypertensive disorder 21543027 Active 2019 Robert Doll MD [address] [place] [address], [address], [facility] [employer] 2 14:41:52 Obesity 215924751 Active 2019 Robert Doll MD [address] [place] [address], [address], [facility] [employer] 2 14:41:54 Prediabetes 823995995 [place] [address] [place] [address] [place], [address], [facility] [employer] [facility] 4 12:37:23 Screening for malignant neoplasm of colon Active 2023 MELYSSA BLANCO MD [address] [place], [address], [facility] 4 16:50:59 Problem Notes None recorded. Medical Equipment None Reported. Allergies Allergen ID Allergen Name Allergen Category Reaction Reaction Severity Criticality Documentation Date Start Date Code Code System Note Provider Name and Address Organization Details Recorded Time 1483 amlodipin e medicatio n other mild low 06/06/2022 62488 RxNorm smitha [facility]- [address] [place], [address], [facility] 2 10:54:05 Medications Name Sig Start [...] Available Not Available No t Available Acid Grape Crusher (famotidi ne) 10 mg tablet TAKE 1 [...] Relief 50 mcg/actua tion nasal spray,evelin pension Lenorah 1 spray every day by intranas al route. 2022 active Not Available Not Available Not Avai lable Vitals Date Recorded Body height Body mass index (BMI) Body weight Body temperature Oxygen saturation Oxygen saturation in Arterial blood by Pulse oximetry Heart rate Heart rate Systolic blood pressure Diastolic blood pressure Provider Name and Address Organization Details Last Updated DateTime 4 147.32 cm 38.3 kg/m2 80844.1 2 g 97.8 [degF] 99 % 99 % 83 /min 83 /min 149 mm[Hg] 74 mm[Hg] Matilde Laguerre [facility] 4 12:37:19 Date Recorded Systolic blood pressure Diastolic blood pressure Provider Name and Address Organization Details Last Updated DateTime 07/24/2024 130 mm[Hg] 75 mm[Hg] MELYSSA BLANCO MD [address] [place], [address] [employer] [facility] 07/24/2024 13:02:50 Social History Question Answer Notes LastModified by Organizat ion Details LastModified Time Tobacco Smoking Status Never Smoker Robert Doll MD [address] [place], [address], [facility] 08/21/2022 14:41:08 What Is Your Level Of Alcohol Consumption? Occasional Rare Beer Information not available 08/21/2022 Are You Currently Employed? Yes Information not available 08/21/2022 What Type Of Diet Are You Following? DIABETIC Information not available 08/21/2022 Who Is Your Employer? [employer] Information not available 08/21/2022 Have There Been Any Changes To Your Family Or Social Situation? No Information not available 08/21/2022 Do You Feel Safe At Home? Yes Lives With [place] Information not available 05/11/2022 What Is Your Relationship Status? Information not available 08/21/2022 Do You Feel Stressed (tense, Restless, Nervous, Or Anxious, Or Unable To Sleep At Night)? [id number] Information not available 08/21/2022 Sex: Unknown Functional [...] mL dose, royal-sucrose 11/02/2021 completed GAURANG CHAVIS [address] [place], [address], [facility] 11/02/2021 16:55:25 Past Encounters Encounter ID Performer Location Encounter Start Date Encounter Closed Date Diagnosis/Indication Diagnosis SNOMED-CT Code Diagnosis ICD10 Code [id number] MELYSSA BLANCO MD [facility] [address] [facility] [place] [address] 07/24/2024 12:30:14 07/24/2024 13:10:33 Hypertensive disorder 09561457 I10 Dyslipidemia 094116639 E 78.5 Anxiety 03777851 F41.9 Gastritis 8087710 K29.70 Shoulder pain 70914268 M 25.519 Prediabetes 731854271 R7 3.03 Health Concerns Section Related Observation LastModified by Organization Detai ls LastModified Time None Recorded Concern Status LastModified by Organization Details LastModified Time None Recorded Payers Encounter Date Sequence Insurance Name Policy Number Policy Mattson Covered Member ID Mattson Member ID Guarantor Name 07/24/2024 SLIDING FEE SCHEDULE - DISCOUNT Judy Varela Notes Date Note Type Note Provider Name and Address Organization Details Recorded Time 07/24/2024 text/html HPI Notes: Imani suresh is [...] pain zachary at bedtime.. Will take ibuprofen MELYSSA BLANCO MD [address] [facility] [place], [address], [facility] [employer] [facility] 07/24/2024 23:30:31 OBGyn Episode No OBEpisode recorded.
[2024-09-28 09:19] LABS: Basophils Absolute Auto 0.03 K/uL (0.00-0.30); Basophils Percent Auto 0.4 % (0.0-3.0); Eosinophils Absolute Auto 0.08 K/uL (0.00-0.50); Eosinophils Percent Auto 1.2 % (0.0-7.0); Hematocrit 35.6 % (33.0-51.0); Hemoglobin* 12.3 gm/dL (12.0-16.0); Immature Granulocytes Abs Auto 0.05 K/uL (0.00-0.30); Immature Granulocytes Pct Auto 0.7 %; Lymphocytes Percent Auto 13.9 % (20-44); Mean Corpuscular HGB Conc 35 gm/dL (32-36); Mean Corpuscular Hemoglobin 31 pg (26-34); Mean Corpuscular Volume 91 fL (80-100); Monocytes Percent Auto 6.2 % (0.0-11.0); Neutrophils Percent Auto 77.6 % (42.0-72.0); Platelet Count* 283 K/uL (140-440); RDW Coefficient of Variation % 11.7 % (11.5-15.5); Red Blood Count 3.92 m/uL (4.00-5.20); White Blood Count* 6.93 K/uL (4.50-11.00)
[2024-09-28 09:21] LABS: Slide Review Reflex No
[2024-09-28 09:22] LABS: Squamous Epithelial Cell Urine Few (None-Few); WBC Urine 0-2 (0-5)
[2024-09-28 09:35] LABS: Chloride* 96 mmol/L (96-114)
[2024-09-28 09:36] LABS: Potassium* 3.3 mmol/L (3.6-5.1); Sodium* 129 mmol/L (135-149)
[2024-09-28 09:38] LABS: Creatinine* 0.6 mg/dL (0.5-1.5); Est. Creatinine Clearance* 37.06; Estimated Glomerular Filt Rate 96 ml/min
[2024-09-28 09:39] LABS: Anion Gap 9 mEq/L (7-15); Blood Urea Nitrogen* 19 mg/dL (7-30); Calcium* 8.8 mg/dL (8.4-10.6); Carbon Dioxide* 24 mmol/L (20-32); Glucose* 175 mg/dL (60-115)
[2024-09-28 09:46] LABS: C Reactive Protein* < 0.5 mg/dL (0.5-1.0)
== END 2024-09-28 10:06 | disposition home or self-care (01) ==
PROVIDERS: Emergency Provider Emergency Medicine
DX: R10.32 Left lower quadrant pain (principal); N83.201 Unspecified ovarian cyst, right side
CPT/HCPCS: 36415; 74176; 80048; 81001; 85025; 86140; 99284